=== PATIENT | male | born 1970 | race Two or more races ===

== ENCOUNTER 2018-05-18 15:26 | Emergency (ER) | payer MEDICAID, OTHER ==
[~2018-05-18] VITALS: Ht 172.7 cm; Wt 117.9 kg
[2018-05-18 15:45] VITALS: BP 122/78
== END 2018-05-18 17:09 | disposition home or self-care (01) ==
LOC: ER 15:36
DX: H10.32 Unspecified acute conjunctivitis, left eye (principal); E11.9 Type 2 diabetes mellitus without complications; F17.210 Nicotine dependence, cigarettes, uncomplicated
CPT/HCPCS: 82962